=== PATIENT | female | born 1980 | race African-American/Black ===

== ENCOUNTER 2021-10-03 05:30 | Observation (INO) | payer OTHER ==
[2021-10-02 10:57] LABS: BASOPHILS % (AUTO) 0.4 % (0.0-5.0); EOSINOPHILS % (AUTO) 1.4 % (0.0-8.0); HEMATOCRIT 39.6 % (36-48); LYMPHOCYTES % (AUTO) 36.6 % (21.0-51.0); MEAN CORPUSCULAR HGB CONC 31.1 g/dL (32.0-36.0); MONOCYTES % (AUTO) 4.4 % (3.0-13.0); NEUTROPHILS % (AUTO) 56.9 % (40.0-77.0); PLATELET COUNT (AUTO) 199 K/uL (130-400); RED BLOOD CELL COUNT(AUTO) 4.55 MIL/uL (4.00-5.50); RED CELL DISTRIBUTION WIDTH 13.7 % (11.0-15.5)
[2021-10-02 12:42] VITALS: BP 155/102
[2021-10-03] VITALS (19 sets, daily range): BP systolic 93–163; BP diastolic 54–97
[~2021-10-03] VITALS: Ht 162.6 cm; Wt 53.3 kg
[~2021-10-03 05:30] MED LIST: AMLO-258 PO
[2021-10-03] MEDS: CEFAZOLIN SODIUM 1 GM VIAL IVP SCH ×2 (06:00→07:03)
[2021-10-03] MEDS: LACTATED RINGERS 1000ML 1,000 ML IV SCH ×3 (06:03→09:15)
[2021-10-03] MEDS ORDERED: FENTANYL CITRATE PF 50 MCG/1 ML 2ML VIAL ONE ×2 (06:52→07:15)
[2021-10-03] MEDS ORDERED: ROCURONIUM BROMIDE 10MG/1ML 5ML VL ONE (06:52)
[2021-10-03] MEDS ORDERED: PROPOFOL 10 MG/ML 20ML VIAL IV ONE ×2 (06:52→07:16)
[2021-10-03] MEDS ORDERED: LIDOCAINE PF 100MG/5ML (2%) SYRINGE 5ML ONE (06:52)
[2021-10-03] MEDS ORDERED: DEXAMETHASONE SOD PHOSPHATE 10MG/ML 1ML VIAL ONE (07:11)
[2021-10-03] MEDS ORDERED: ONDANSETRON 4MG INJ ONE (07:12)
[2021-10-03] MEDS ORDERED: NEOSTIGMINE 5MG/5ML SYR IV ONE (08:44)
[2021-10-03] MEDS ORDERED: GLYCOPYRROLATE 1 MG/5 ML SYRINGE ONE (08:44)
[2021-10-03] MEDS ORDERED: MEPERIDINE-PF 25 MG/ML SYG ONE (09:55)
[2021-10-03] MEDS ORDERED: BISACODYL 10 MG SUPP.RECT RC PRN (10:00)
[2021-10-03] MEDS ORDERED: PROMETHAZINE HCL 25 MG/ML 1ML AMPULE IM PRN ×2 (10:00)
[2021-10-03] MEDS ORDERED: ACETAMINOPHEN WITH CODEINE 1 TAB TAB PO PRN (10:00)
[2021-10-03] MEDS ORDERED: ONDANSETRON 4MG INJ IVP PRN (10:00)
[2021-10-03] MEDS: DEXTROSE 5 %-0.45 % NACL 1,000 ML IV PRN ×2 (10:43→19:00)
[2021-10-03] MEDS: MEPERIDINE-PF 75 MG/ML SYG IM PRN ×2 (10:43→19:40)
[2021-10-03] MEDS: IBUPROFEN 600 MG TABLET PO PRN (13:14)
[2021-10-03] MEDS: DOCUSATE SODIUM 100 MG CAP PO PRN (19:40)
[2021-10-03] MEDS: SIMETHICONE 80 MG TAB.CHEW PO PRN (19:40)
[2021-10-04] MEDS ORDERED: ACETAMINOPHEN WITH CODEINE 1 TAB TAB PO PRN (01:30)
[2021-10-04] MEDS ORDERED: HYDROCODONE/ACETAMINOPHEN 5/325 MG TAB PO PRN (01:30)
[2021-10-04 03:06] VITALS: BP 180/104
[2021-10-04 03:15] VITALS: BP 173/99
[2021-10-04] MEDS ORDERED: AMLODIPINE 5 MG TAB PO ONE (03:35)
[2021-10-04 05:36] VITALS: BP 142/98
[2021-10-04 06:58] LABS: HEMATOCRIT 35.7 % (36-48); MEAN CORPUSCULAR HGB CONC 32.5 g/dL (32.0-36.0); RED BLOOD CELL COUNT(AUTO) 4.15 MIL/uL (4.00-5.50); RED CELL DISTRIBUTION WIDTH 13.6 % (11.0-15.5); WHITE BLOOD COUNT (AUTO) 17.8 K/uL (4.8-10.8)
[2021-10-04 07:02] VITALS: BP 147/95
[2021-10-04] MEDS: SIMETHICONE 80 MG TAB.CHEW PO PRN (08:09)
[2021-10-04] MEDS: IBUPROFEN 600 MG TABLET PO PRN (08:10)
[2021-10-04] MEDS: DOCUSATE SODIUM 100 MG CAP PO PRN (08:10)
[2021-10-04] MEDS ORDERED: AMLODIPINE 5 MG TAB PO SCH (09:00)
== END 2021-10-04 10:15 | disposition home or self-care (01) ==
LOC: DAH 05:30 → DAHIP 05:31 → DAH 05:31 → WSH 10:25
PROVIDERS: ADMIT Obstetrics & Gynecology; ATTEND Obstetrics & Gynecology
DX: D25.9 Leiomyoma of uterus, unspecified (principal); Z20.822 Contact with and (suspected) exposure to COVID-19; N83.202 Unspecified ovarian cyst, left side; K46.9 Unspecified abdominal hernia without obstruction or gangrene; I10 Essential (primary) hypertension; Z79.899 Other long term (current) drug therapy
CPT/HCPCS: 36415 ×2; 57268; 58552; 84703; 85025; 85027; 86850; 86900; 86901; 87635; 96372; A4215 ×2; A4221; A4222; A4223; A4344; A4510; A4600; A4649 ×3; A4663; A6260; C1769 ×2; C9803; G0378 ×21; J0690; J1100; J2001; J2175 ×3; J2405; J2550 ×2; J2704 ×2; J2710; J3010 ×2; J3490 ×2; J7030; 96376